=== PATIENT | male | born 1955 | race Caucasian/White ===

== ENCOUNTER → 2022-11-14 | Outpatient (CLI) | payer MEDICARE, OTHER ==
[~2022-11-14] MED LIST: LIDOCAINE 1% INJ 10 ML VIAL INJ ONE
--- NOTE | 2022-11-14 19:05 | Diagnostic Imaging Report ---
INDICATION: Right thyroid nodule. Patient presents for ultrasound-guided fine-needle aspiration. FINDINGS: Patient was brought to the procedure room and placed on table in the supine position. Ultrasound imaging of the right neck was performed to evaluate appropriate entry site. The right neck was then prepped and draped in the usual sterile fashion. A small amount of 1% lidocaine was utilized for local anesthesia. Four passes were made into the hypoechoic dominant solid nodule in the right lobe of thyroid utilizing 25-gauge needles and fine-needle aspiration technique. Hemostasis was obtained. Patient tolerated the procedure well and left the Department in stable condition. IMPRESSION: Successful ultrasound-guided fine-needle aspiration of the dominant solid nodule in right lobe of the thyroid. Pathology results are currently pending. Dictated by: Dictated on workstation # [id number]
== END ==
LOC: RAD 14:15
PROVIDERS: ATTEND Family Medicine
DX: E04.1 Nontoxic single thyroid nodule (principal)